=== PATIENT | female | born 1960 | race Caucasian/White ===

== ENCOUNTER 2025-06-20 05:54 | Emergency (ER) | payer MEDICARE, OTHER, SELFPAY ==
[2025-06-20 05:54] VITALS: BMI 31.7
[2025-06-20 05:56] VITALS: BP 158/90
[2025-06-20 06:12] VITALS: BP 135/84
[2025-06-20 07:00] VITALS: BP 109/69
--- NOTE | 2025-06-20 07:20 | ED.GENMED ---
Addendum entered and electronically signed by Lizzie Biggs PA-C 06/23/25 08:09:
Urine culture positive for >100k teran sensitive e. coli. Sent home on Omnicef. No adjustments necessary.
Original Note:
History of Present Illness
General
Chief Complaint: Urinary Symptoms
Source: patient
Exam Limitations: none
Time Seen by Provider: 06/20/25 07:09
History of Present Illness
History of Present Illness:
64-year-old female presents with onset of hematuria and lower abdominal pressure starting earlier this morning. She woke up in the night to urinate and first time she urinated was clear however following episode she noticed norman blood and recently
she has been passing clots. She notes urgency to go. She denies any significant flank pain fever or vomiting. Of note, the patient has been taking full aspirin for the past month secondary to a vein procedure she was doing. Today was a day she
was supposed to transition back to her baby aspirin. No prior history of UTIs or kidney stones. No other complaints at this time
Past History
Past History
ED Past Medical History: HTN, Other (Migraine), Other (episode colitis last year) and Other (migraines/fibroids)
ED Past Surgical History: Appendectomy and Orthopedic (right wrist X 3)
Social History
Tobacco: Non-smoker
Personal:
Living: with family
Employment: Employed
Phy Exam
Physical Exam
Physical Exam:
General: Well-appearing female no acute respiratory distress
HEENT: Normal cephalic atraumatic
Heart: Regular rate and rhythm
Lungs: Clear no wheeze
Abdomen soft tender to suprapubic region no significant costovertebral angle tenderness
Extremities without
Course
Orders/Labs/Results
Orders:
Orders
06/20/25 07:20
CT Abd/pel Without Iv Or Oral Urgent
Comment:
Reason For Exam: hematuria
06/20/25 07:29
Complete Blood Count/With Diff Urgent
Comprehensive Metabolic Panel Urgent
Urinalysis Reflex To Culture Urgent
Date Specimen was Collected: 06/20/25
Time Specimen was Collected: 07:23
Urine Microscopic Reflex Cult Urgent
Urine Culture Urgent
AGUSTIN Source: U
Specimen Description:
Date Specimen was Collected: 06/20/25
Time Specimen was Collected: 07:23
06/20/25 09:33
Cefdinir [Omnicef] 300 mg PO NOW STA
Abnormal Lab Results
06/20/25
07:29
Absolute Neuts (auto) 7.5 H 10^3/uL
(1.4-6.5)
Absolute Lymphs (auto) 0.9 L 10^3/uL
(1.2-3.4)
Absolute Monos (auto) 0.7 H 10^3/uL
(0.1-0.6)
Neutrophils % 80.7 H %
(42.2-75.2)
Lymphocytes % 10.2 L %
(20.5-51.1)
Glucose 102 H mg/dl
(70-99)
Ur Occult Blood Reflex 4+ A
(Negative)
Urine Nitrite (Reflex) Positive A
(Negative)
Leukocyte Esterase Rfl 3+ A
(Negative)
Urine RBC >100 A /HPF
(0-2)
Urine WBC (Reflex) 30-40 A /HPF
(0-5)
Urine Bacteria (Reflex) Moderate A
(Negative)
Urine Albumin (Reflex) 3+ A
(Neg - Trace)
06/20/25 07:29
06/20/25 07:29
Vital Signs
Initial and Last Documented VS:
Initial Vital Signs
Temp Pulse Resp BP Pulse Ox
98.4 F 74 20 158/90 98
06/20/25 05:56 06/20/25 05:56 06/20/25 05:56 06/20/25 05:56 06/20/25 05:56
Last Documented Vital Signs
Temp Pulse Resp BP Pulse Ox
98.4 F 74 20 110/71 98
06/20/25 05:56 06/20/25 05:56 06/20/25 05:56 06/20/25 09:00 06/20/25 09:00
MDM/Problems Addressed
Differential Diagnosis Includes:
Patient presents with lower abdominal pressure and hematuria. Consider renal stone versus cystitis versus hemorrhagic cystiti will check labs and urine. CT ordereds.
*Pulse Oximetry
SaO2: 95
Oxygen Mode of Delivery: Room air
Patient hypoxic: no
*Critical Care Note
Total Time (30-74mins, 75-104mins- exclusive of procedures): Not Applicable
Update Note
Update Note:
UA consistent with UTI with nitrite positive with large amount of white cells and bacteria with blood. I suspect hemorrhagic cystitis. CT without kidney stone or other cause of hematuria. Will prescribe Omnicef and have her follow-up with her
doctor for recheck. Stable for discharge
ED Attending Note
-
Portions of this chart may have been created with voice recognition software.� Occasional wrong word or��sound alike� substitutions may have occurred due to the inherent limitations of voice recognition software.
Discharge Plan
Departure
Patient Disposition: Home (Routine Discharge)
Date of Disposition: 06/20/25
Time of Disposition: 09:34
Patient with high blood pressure during this ER visit?: No
Discharge Problem:
Acute hemorrhagic cystitis
Instructions: Urinary Tract Infection, Adult (DC)
Prescriptions:
New
cefdinir 300 mg capsule
300 mg PO BID Qty: 14 0RF
No Action
aspirin [[place] Aspirin Children] 81 MG tablet,chewable
81 mg PO DAILY
biotin 500 MCG capsule
1,000 mcg PO DAILY
omega-3 fatty acids-fish oil [Fish Oil] 1 CAP capsule
2 cap PO DAILY
Lopressor 12.5 MG
12.5 mg PO DAILY
multivitamin [Orv-Ynfnpe-Cbwcs] 1 EACH tablet
1 ea PO DAILY
pantoprazole 40 MG tablet,delayed release (DR/EC)
40 mg PO DAILY
Vitamin B12
1 tab PO DAILY
Vitamin D
1 tab PO DAILY
ranitidine HCl [Zantac 75] 75 MG tablet
150 mg PO DAILY
Bifidobacterium infantis [Align (B.infantis)] 4 MG capsule
4 mg PO DAILY
Referrals:
Tee Bull MD [Family Provider, Internal Medicine]
Activity Restrictions/Additional Instructions:
Drink plenty of fluids. Use antibiotic as directed. Follow-up with your doctor. Return here if you develop increasing symptoms fever vomiting or other concerning findings
Interventions
Interventions:
*Risk Screen - Suicide Last Done: 06/20/25 05:56
*General Assessment Last Done: 06/20/25 06:16
*Neglect/Abuse Screening Last Done: 06/20/25 05:56
*ED- Fall Risk Assessment Last Done: 06/20/25 06:15
*ED COVID-19 Vaccine History Last Done: 06/20/25 06:15
*ED Influenza Vaccine History Last Done: 06/20/25 06:15
ED-Female Genitourinary Assessment Last Done: 06/20/25 06:15
Discharge Date and Time
Print Language: [id number]
[2025-06-20 07:38] LABS: Hematocrit 42.3 % (37.0-47.0); Hemoglobin 14.0 g/dL (12.0-16.0); Mean Corp Hgb Conc. 33.1 g/dL (33.0-37.0); Mean Corpuscular Volume 91.8 fL (81.0-99.0); Nucleated Red Blood Cells % 0 %; Platelet Count 271 10^3/uL (130-400); Red Cell Dist. Width 12.6 % (11.5-14.5)
[2025-06-20 07:39] LABS: Urine Character Slightly Cloudy (Clear)
[2025-06-20 07:50] LABS: ALT (SGPT) 19 U/L (0-35); AST (SGOT) 20 U/L (14-36); Albumin 4.1 g/dl (3.5-5.0); Alkaline Phosphatase 51 U/L (38-126); Blood Urea Nitrogen 13 mg/dl (7-17); Calcium 9.0 mg/dl (8.4-10.2); Carbon Dioxide 30 mmol/L (22-30); Chloride 105 mmol/L (98-107); Estimated Creatinine Clearance 94 ml/min; Glucose 102 mg/dl (70-99); Potassium 4.7 mmol/L (3.5-5.1); Sodium 137 mmol/L (135-145); Total Protein 6.8 g/dl (6.3-8.2); eGFR > 60.00
[2025-06-20 08:00] VITALS: BP 114/78
[2025-06-20 08:10] LABS: Urine Red Blood Cell >100 /HPF (0-2); Urine White Cell 30-40 /HPF (0-5)
[2025-06-20 09:00] VITALS: BP 110/71
[2025-06-20] MEDS: OMNICEF 300 MG PO (09:48)
== END 2025-06-20 09:57 | disposition home or self-care (01) ==
LOC: EMR 05:54
PROVIDERS: Physician Assistant; EMERGENCY PHYSICIAN Emergency Medicine; FAMILY PHYSICIAN Internal Medicine
DX: N30.01 Acute cystitis with hematuria (principal); I10 Essential (primary) hypertension; Z90.49 Acquired absence of other specified parts of digestive tract
CPT/HCPCS: 99284; 74176; 80053; 81003; 81015; 85025; 87077; 87086; 87186